=== PATIENT | male | born 1990 | race Caucasian/White ===

== ENCOUNTER 2016-08-07 20:53 | Emergency (ER) | payer OTHER ==
[~2016-08-07] VITALS: Ht 188 cm; Wt 92.6 kg
[~2016-08-07 20:53] MED LIST: ADVI200C9 PO; VICOTAB4 PO
[2016-08-07 21:00] VITALS: BP 140/89; PULSE 69; RESP 16; TEMP 98.2; O2SAT 98
--- NOTE | 2016-08-07 21:52 | PD ---
Data Data Last Documented VS Vital Signs Date Time Temp Pulse Resp B/P Pulse Ox O2 Delivery O2 Flow Rate FiO2 08/07/16 21:00 98.2 69 16 140/89 98 MDM Supervised Visit with EWA: Yes Narrative Course I, Dr. Anderson, have reviewed the advance practice practitioner's documentation and am in agreement, met with the patient face to face, made the diagnosis, and the medical decision making was done by me. *My assessment and Findings: Patient seen and examined by me in addition to Larisa WITT. Patient is a pleasant 26-year-old male presents emergency Department with a nonpainful but irritating lesion at the orifice of the sublingual gland at the frenulum. Patient had seen by his primary care physician for similar and the stone was partially removed however was not able to completely remove. Patient came in tonight seeing if it could be completely removed. The patient does have a stage shaped calcific lesion right at the area described above. There is nontender to palpation. No surrounding edema or erythema. Etiology remains unknown however there is no indication for emergent therapy at this time. The patient was discussed by Larisa with Dr. Stuart design studio consultant who states that he is in procedures on Tuesday would be happy to see the patient on Tuesday for further workup and evaluation. This information was conveyed to the patient is stable for discharge and outpatient workup at this time. Scripts Clindamycin 300 Mg [id number] Mg PO Q6H #40 CAP Ref 0 Prov:Larisa Nash 08/07/16 Jasvir Anderson MD Aug 07, 2016 21:52
[2016-08-07] MEDS ORDERED: CLIN1CAP6 PO (21:55)
--- NOTE | 2016-08-07 21:59 | PD ---
HPI Chief Complaint: Oral / Dental Pain or Problem Time Seen by Provider: 21:00 Travel History International Travel<30 days: No Contact w/Intl Traveler<30days: No Traveled to known affect area: No History of Present Illness HPI 26-year-old male presents emergency department for evaluation of oral discomfort. Patient reports that on 08/05/16 he was evaluated by his primary care physician for submandibular/sublingual swelling and was diagnosed with salivary gland stone. He reports that his PCP attempted to remove the stone in office through manual manipulation of the duct. He reports the stone was partially removed and he had improvement of the swelling. He was sent home with a prescription for amoxicillin to take in case he developed fever or chills. He presents to the emergency department today because he has continued irritation at the site of the duct. He does not endorse worsening of symptoms just continued irritation. He denies fever, chills, facial swelling, or difficulty swallowing. PFSH Past Medical History ADD: Yes Tetanus Vaccination: Unknown Influenza Vaccination: No ?: Not Social History Alcohol Use: No Tobacco Use: No Substance Use: No Allergies-Medications (Allergen,Severity, Reaction): Coded Allergies: Ceclor (Verified Allergy, Severe, 12/07/08) Reported Meds & Prescriptions Reported Meds & Active Scripts Active Clindamycin (Clindamycin HCl) 300 Mg Cap 300 Mg PO Q6H Review of Systems Except as stated in HPI: all other systems reviewed are Neg Physical Exam Narrative GENERAL: Alert, well-appearing male in no acute distress. SKIN: Focused skin assessment warm/dry. HEAD: Atraumatic. Normocephalic. EYES: Pupils equal and round. No scleral icterus. No injection or drainage. ENT: No nasal bleeding or discharge. Mucous membranes pink and moist. ORAL: Sublingual duct to the right of the frenulum inflamed. No purulent drainage noted. Palpation of the sublingual gland is mildly tender. No swelling to the floor the mouth. NECK: Trachea midline. No JVD. No lymphadenopathy. NEUROLOGICAL: Awake and alert. No obvious cranial nerve deficits. Motor grossly within normal limits. Normal speech. PSYCHIATRIC: Appropriate mood and affect; insight and judgment normal. Data Data Last Documented VS Vital Signs Date Time Temp Pulse Resp B/P Pulse Ox O2 Delivery O2 Flow Rate FiO2 08/07/16 21:00 98.2 69 16 140/89 98 MDM Medical Decision Making Medical Screen Exam Complete: Yes Emergency Medical Condition: Yes Differential Diagnosis sialolithiasis, sialadenitis, lymphadenitis, dental abscess Narrative Course 26-year-old male presents emergency department for evaluation of oral discomfort. Several days prior patient noticed some right lower jaw discomfort and swelling he was diagnosed by his primary care provider with having a salivary stone which was partially extracted in office. Since then he's had continued irritation at the site of the duct. He does not endorse worsening symptoms. He reports the swelling has in fact gone down since the removal of the stone. On exam he does have inflammation of the sublingual duct to the right upper frenulum without evidence of an infected sublingual gland. Call placed to on-call ENT to facilitate close follow-up. Dr. Stuart agrees to see patient in office on Tuesday. In the interim he recommends the patient be put on clindamycin, encourage hydration, and continue with lemon candies. The plan of care was discussed with patient. He verbalizes understanding. Return precautions discussed. Physician Communication Physician Communication [id number]: Spoke with Dr. Stuart on-call ENT regarding patient's case. He recommends clindamycin, oral hydration, lemon candies and follow up in office on Tuesday. Diagnosis Primary Impression: Sialolithiasis Referrals: Efrain Stuart MD Additional Instructions: Take the antibiotics as prescribed. Stay hydrated by drinking plenty of fluids. Sucking on lemon flavored candies may help expel the stone. Call on Tuesday morning for follow-up appointment with Dr. Stuart ENT Scripts Clindamycin 300 Mg [id number] Mg PO Q6H #40 CAP Ref 0 Prov:Larisa Nash 08/07/16 Disposition: 01 DISCHARGE HOME Condition: Stable Larisa Nash Aug 07, 2016 21:59
== END 2016-08-07 22:04 | disposition home or self-care (01) ==
LOC: PHEFT 20:53
DX: K11.5 Sialolithiasis (principal)
CPT/HCPCS: 99282